=== PATIENT | female | born 1960 | race Caucasian/White ===

== ENCOUNTER 2019-01-27 14:27 | Emergency (ER) | payer BC ==
--- NOTE | 2019-01-27 15:28 | EDM.PDOC ---
ED HPI GENERAL MEDICAL PROBLEM - General Chief Complaint: Eye Problems Stated Complaint: right eye vision change Time Seen by Provider: 01/27/19 14:37 Source of Information: Reports: Patient History Limitations: Reports: No Limitations - History of Present Illness INITIAL COMMENTS - FREE TEXT/NARRATIVE: Patient comes to ER with complaint of black colored dots/swirling appearance of vision at times right eye. Started today. Denies flashes of light. No change in visual acuity. Is nearsighted. Wears contacts. Denies recent injuries. No other health changes. No previous history of similar complaints. Denies eye pain/drainage/swelling. Describes it as looking like there is a bug near bottom of vision at times, sometimes appears like black hairs in visual field. Sometimes appears like black half shape of mooney in line of vision. Normally has good BP, well controlled on meds. Took BP after visual changes started and noticed it was higher than usual. - Related Data Allergies Allergy/AdvReac Type Severity Reaction Status Date / Time Penicillins Allergy Cannot Verified 01/27/19 14:30 Remember Sulfa (Sulfonamide Allergy Cannot Verified 01/27/19 14:30 Antibiotics) Remember Home Meds: Home Meds Metoprolol Tartrate 12.5 mg PO BID 01/27/19 [History] Simvastatin [Zocor] 40 mg PO DAILY 01/27/19 [History] Past Medical History Cardiovascular History: Reports: High Cholesterol, Hypertension Social & Family History - Tobacco Use Smoking Status *Q: Never Smoker Second Hand Smoke Exposure: No - Caffeine Use Caffeine Use: Reports: Coffee, Soda - Recreational Drug Use Recreational Drug Use: No ED ROS GENERAL - Review of Systems Review Of Systems: ROS reveals no pertinent complaints other than HPI. ED EXAM GENERAL W FULL EYE - Physical Exam Exam: See Below Exam Limited By: No Limitations General Appearance: Alert, WD/WN, No Apparent Distress Eye Exam: Bilateral Eye: EOMI, PERRL Visual Acuity (R) 20/: 20 Visual Acuity (L) 20/: 20 With Correction: Yes Eyelids: Bilateral: Normal Appearance Conjunctiva & Sclera: Bilateral: Normal Appearance Cornea Exam: Bilateral: Normal Appearance Extraocular Movements: Bilateral: Intact Pupils: Normal Accommodation Pupillary Size: Bilateral: 5 mm Pupillary Reaction: Bilateral: Brisk Anterior Chamber: Right: Normal Appearance Posterior Chamber: Right: Other (no obvious changes noted, however patient not dilated for exam) Ears: Normal External Exam Nose: No: Nasal Deformity, Nasal Swelling, Nasal Drainage Throat/Mouth: Normal Inspection, Normal Lips, Normal Voice, No Airway Compromise Head: Atraumatic, Normocephalic Neck: Supple, Non-Tender Respiratory/Chest: No Respiratory Distress, Lungs Clear, Normal Breath Sounds Cardiovascular: Regular Rate, Rhythm, No Murmur GI/Abdominal: Soft, Non-Tender (Male) Exam: Deferred (Female) Exam: Deferred Rectal (Males) Exam: Deferred Rectal (Female) Exam: Deferred Neurological: Alert, Oriented, Normal Cognition, Normal Gait, No Motor/Sensory Deficits Psychiatric: Normal Affect, Normal Mood Skin Exam: Warm, Dry, Intact, Normal Color Course - Vital Signs Last Recorded V/S: Last Vital Signs Temp 36.8 C 01/27/19 14:27 Pulse 107 H 01/27/19 14:27 Resp 20 01/27/19 14:27 BP 168/80 H 01/27/19 14:27 Pulse Ox 96 01/27/19 14:27 - Re-Assessments/Exams Free Text/Narrative Re-Assessment/Exam: Call placed to [facility] and spoke to on-call eye provider, . He feels that the changes could reflect a posterior vitreous detachment and wants patient to follow up Tuesday for an indepth eye exam. Patient will call [facility] early Tuesday morning to obtain appointment. Patient agreeable with plan. Suspect BP elevation likely due to anxiety related to visual changes. Patient reassured. To continue to monitor BP for change and follow up with primary provider if it continues to trend higher. Departure - Departure Time of Disposition: 15:36 Disposition: Home, Self-Care 01 Condition: Good Clinical Impression: Visual changes - Discharge Information Instructions: Vitreous Detachment Referrals: PCP,None [Primary Care Provider] - Forms: ED Department Discharge Additional Instructions: Take it easy over the weekend. Avoid lifting and other forms of heavy exertion. Call [facility] in [place] on Tuesday and get an appointment at one of their clinics to see an eye provider to have a thorough eye exam. We spoke to who was correctional case records supervisor over the weekend and he wants you to be checked on Tuesday. Tell them he is concerned that you may have a posterior vitreous detachment which caused your sudden floaters. Take your blood pressure a few times over the next few days and observe trends. Hopefully it is the stress of the vision change/anxiety that is contributing to the elevation. However, if it persists, you will need to follow up with your doctor.
== END 2019-01-27 16:05 | disposition home or self-care (01) ==
LOC: LL.ED 14:27
DX: H57.89 Other specified disorders of eye and adnexa (principal); I10 Essential (primary) hypertension; E78.00 Pure hypercholesterolemia, unspecified; Z88.2 Allergy status to sulfonamides; Z79.899 Other long term (current) drug therapy; Z88.0 Allergy status to penicillin
CPT/HCPCS: 99283

== ENCOUNTER 2020-03-09 15:50 | Emergency (ER) | payer BC ==
[2020-03-09] MEDS ORDERED: Sodium Chloride 0.9% 10 ML Syringe FLUSH PRN (16:04)
[2020-03-09] MEDS ORDERED: Sodium Chloride 0.9% 1,000 ML IV SCH (16:15)
[2020-03-09 16:40] LABS: CHLORIDE,CL 100 mmol/L (98-107); SODIUM,NA 136 mmol/L (136-145)
[2020-03-09] MEDS ORDERED: Ondansetron 4 MG/2 ML SDV IVPUSH ONE (16:40)
--- NOTE | 2020-03-09 16:54 | EDM.PDOC ---
ED HPI GENERAL MEDICAL PROBLEM - General Chief Complaint: General Stated Complaint: nausea, malaise, fever Time Seen by Provider: 03/09/20 16:05 Source of Information: Reports: Patient History Limitations: Reports: No Limitations - History of Present Illness INITIAL COMMENTS - FREE TEXT/NARRATIVE: Pt presents to ER with fever, nausea and malaise Worse today No known Covid exposure No SOB No chest pain Decreased appetite Duration: Day(s):, Getting Worse Location: Reports: Generalized Quality: Reports: Ache Severity: Moderate Associated Symptoms: Reports: Fever/Chills, Malaise, Nausea/Vomiting Abdominal Pain Score (Numeric/FACES): 2 - Related Data Allergies Allergy/AdvReac Type Severity Reaction Status Date / Time Penicillins Allergy Cannot Verified 03/09/20 16:02 Remember soybean Allergy Difficulty Verified 03/09/20 16:02 Swallowing Sulfa (Sulfonamide Allergy Cannot Verified 03/09/20 16:02 Antibiotics) Remember Home Meds: Home Meds Metoprolol Tartrate 12.5 mg PO BID 01/27/19 [History] Simvastatin [Zocor] 40 mg PO DAILY 01/27/19 [History] Ascorbic Acid [Vitamin C] 500 mg PO DAILY 03/09/20 [History] Aspirin [Halfprin] 81 mg PO TUTH 03/09/20 [History] Calcium Carbonate [Calcium] 500 mg PO DAILY 03/09/20 [History] Elderberry Fruit and Flower [Black Elderberry 575 mg Cap] 1 each PO DAILY 03/09/20 [History] Fish Oil/[place]-3 Fatty Acids [Fish Oil 1,000 MG] 1 each PO DAILY 03/09/20 [History] Magnesium 200 mg PO DAILY 03/09/20 [History] Non-Formulary Medication [NF Drug] 1 each PO ASDIRECTED 03/09/20 [History] Non-Formulary Medication [NF Drug] 1 each PO DAILY 03/09/20 [History] Zinc 50 mg PO DAILY 03/09/20 [History] Past Medical History HEENT History: Reports: Impaired Vision Cardiovascular History: Reports: High Cholesterol, Hypertension - Past Surgical History GI Surgical History: Reports: Appendectomy Female Surgical History: Reports: Hysterectomy, Salpingo-Oophorectomy, Other (See Below) Other Female Surgeries/Procedures: cervix removal Social & Family History - Tobacco Use Tobacco Use Status *Q: Never Tobacco User - Caffeine Use Caffeine Use: Reports: Coffee, Soda, Tea ED ROS GENERAL - Review of Systems Review Of Systems: See Below Constitutional: Reports: Fever, Malaise, Weakness, Fatigue, Decreased Appetite Respiratory: Reports: No Symptoms Cardiovascular: Reports: No Symptoms GI/Abdominal: Reports: Nausea Musculoskeletal: Reports: No Symptoms Skin: Reports: No Symptoms Neurological: Reports: No Symptoms Psychiatric: Reports: No Symptoms ED EXAM, GENERAL - Physical Exam Exam: See Below Exam Limited By: No Limitations General Appearance: Alert, WD/WN, Moderate Distress Nose: Normal Inspection Throat/Mouth: Normal Oropharynx Neck: Supple Respiratory/Chest: Decreased Breath Sounds Cardiovascular: Regular Rate, Rhythm GI/Abdominal: Soft, Non-Tender Extremities: Normal Inspection Neurological: Alert, Oriented Psychiatric: Normal Affect, Normal Mood Skin Exam: Warm, Dry Course - Vital Signs Last Recorded V/S: Last Vital Signs Temp 98.9 F 03/09/20 16:05 Pulse 86 03/09/20 16:05 Resp 16 03/09/20 16:05 BP 145/84 H 03/09/20 16:05 Pulse Ox 99 03/09/20 16:05 - Orders/Labs/Meds Orders: Active Orders 24 hr Category Date Time Status CORONAVIRUS COVID-19 VALENTINO [MOLEC] Urgent Lab 03/09/20 16:03 Ordered Sodium Chloride 0.9% [Normal Saline] 1,000 ml Med 03/09/20 16:15 Active IV ASDIRECTED Sodium Chloride 0.9% [Saline Flush] Med 03/09/20 16:04 Active 10 ml FLUSH ASDIRECTED PRN Isolation [COMM] Routine Oth 03/09/20 16:03 Active Saline Lock Insert [OM.PC] Routine Oth 03/09/20 16:04 Ordered Medication Orders Sodium Chloride (Normal Saline) 1,000 mls @ 999 mls/hr IV ASDIRECTED ALIDA Last Admin: 03/09/20 16:15 Dose: 999 mls/hr Documented by: CASS Sodium Chloride (Saline Flush) 10 ml FLUSH ASDIRECTED PRN PRN Reason: Keep Vein Open Labs: Laboratory Tests 03/09/20 03/09/20 Range/Units 16:15 16:15 WBC 4.4 (4.0-10.2) K/uL RBC 4.80 (3.77-5.09) M/uL Hgb 14.3 (11.7-15.5) g/dL Hct 41.1 (34.0-46.0) % MCV 85.6 (84.0-98.0) fL MCH 29.8 (28.2-33.3) pg MCHC 34.8 (31.7-36.0) g/dL RDW 13.1 (11.2-14.1) % Plt Count 115 L (150-350) K/uL Neut % (Auto) 72.4 (45.0-80.0) % Lymph % (Auto) 22.0 (10.0-50.0) % [place] % (Auto) 5.2 (2.0-14.0) % Eos % (Auto) 0.2 (0.0-5.0) % Baso % (Auto) 0.2 (0.0-2.0) % Neut # (Auto) 3.19 (1.40-7.00) K/uL Lymph # (Auto) 0.97 (0.50-3.50) K/uL [place] # (Auto) 0.23 (0.00-1.00) K/uL Eos # (Auto) 0.01 (0.00-0.50) K/uL Baso # (Auto) 0.01 (0.00-0.20) K/uL Sodium 136 (136-145) mmol/L Potassium 3.3 L (3.5-5.1) mmol/L Chloride 100 (98-107) mmol/L Carbon Dioxide 25.8 (21.0-32.0) mmol/L BUN 11 (7-18) mg/dL Creatinine 0.62 (0.51-1.17) mg/dL Est Cr Clr Drug Dosing 90.08 mL/min Estimated GFR (MDRD) > 60 mL/min Glucose 110 H (74-106) mg/dL Calcium 8.5 (8.5-10.1) mg/dL Meds: Medications Generic Name Dose Route Start Last Admin Trade Name Freq PRN Reason Stop Dose Admin Sodium Chloride 1,000 mls @ 999 mls/hr 03/09/20 16:15 03/09/20 16:15 Normal Saline IV 999 mls/hr ASDIRECTED ALIDA Administration Sodium Chloride 10 ml 03/09/20 16:04 Saline Flush FLUSH ASDIRECTED PRN Keep Vein Open Discontinued Medications Generic Name Dose Route Start Last Admin Trade Name Veronique PRN Reason Stop Dose Admin Ondansetron HCl 8 mg 03/09/20 16:40 Zofran IVPUSH 03/09/20 16:41 ONETIME ONE - Re-Assessments/Exams Free Text/Narrative Re-Assessment/Exam: 03/09/20 16:51 Pt given IVF and IV Zofran in ER See lab Covid test pending Departure - Departure Time of Disposition: 17:30 Disposition: Home, Self-Care 01 Clinical Impression: Malaise and fatigue - Discharge Information *PRESCRIPTION DRUG MONITORING PROGRAM REVIEWED*: Not Applicable *COPY OF PRESCRIPTION DRUG MONITORING REPORT IN PATIENT JOSEPH: Not Applicable Instructions: Fatigue Referrals: Jennifer Sanchez NP [Primary Care Provider] - Additional Instructions: Tylenol or Motrin as needed Follow up in clinic Rx Zofran ODT every 8 hours as needed Encourage fluids Sepsis Event Note (ED) - Evaluation Sepsis Screening Result: No Definite Risk - Focused Exam Vital Signs: Vital Signs Temp Pulse Resp BP Pulse Ox 03/09/20 16:05 98.9 F 86 16 145/84 H 99 - My Orders Last 24 Hours: My Active Orders 03/09/20 16:03 CORONAVIRUS COVID-19 VALENTINO [MOLEC] Urgent Isolation [COMM] Routine 03/09/20 16:04 Sodium Chloride 0.9% [Saline Flush] 10 ml FLUSH ASDIRECTED PRN Saline Lock Insert [OM.PC] Routine 03/09/20 16:15 Sodium Chloride 0.9% [Normal Saline] 1,000 ml IV ASDIRECTED - Assessment/Plan Last 24 Hours: My Active Orders 03/09/20 16:03 CORONAVIRUS COVID-19 VALENTINO [MOLEC] Urgent Isolation [COMM] Routine 03/09/20 16:04 Sodium Chloride 0.9% [Saline Flush] 10 ml FLUSH ASDIRECTED PRN Saline Lock Insert [OM.PC] Routine 03/09/20 16:15 Sodium Chloride 0.9% [Normal Saline] 1,000 ml IV ASDIRECTED
== END 2020-03-09 17:30 | disposition home or self-care (01) ==
LOC: LL.ED 15:50
DX: U07.1 COVID-19 (principal); I10 Essential (primary) hypertension; E78.00 Pure hypercholesterolemia, unspecified; Z79.82 Long term (current) use of aspirin; Z79.899 Other long term (current) drug therapy; Z88.0 Allergy status to penicillin; Z91.018 Allergy to other foods; Z88.2 Allergy status to sulfonamides
CPT/HCPCS: 36415; 80048; 85025; 87804; 96374; 99283-25; J2405; J7030; U0002

== ENCOUNTER 2023-05-15 12:44 | Emergency (ER) | payer BC ==
[2023-05-15 12:55] LABS: APPEARANCE,URINE CLEAR; BILIRUBIN,URINE NEGATIVE (NEGATIVE); COLOR,URINE LIGHT YELLOW; GLUCOSE,URINE NEGATIVE (NEGATIVE); KETONES,URINE NEGATIVE (NEGATIVE); LEUKOCYTE ESTERASE,URINE MODERATE (NEGATIVE); NITRITE,URINE NEGATIVE (NEGATIVE); OCCULT BLOOD,URINE MODERATE (NEGATIVE); PROTEIN,URINE NEGATIVE (NEGATIVE); UROBILINOGEN,URINE 0.2 E.U./dL (0.2-1.0)
[2023-05-15 13:03] LABS: BACTERIA,URINE MODERATE /HPF (NONE TO FEW); EPITHELIAL CELLS,URINE FEW /LPF; RBC,URINE 0-5 /HPF; WBC,URINE >100 /HPF
[2023-05-15] MEDS ORDERED: Take Home: Nitrofurantoin Monohydrate/Macrocrystalline 100 MG, 6 Cap Pack PO ONE (13:16)
== END 2023-05-15 13:30 | disposition home or self-care (01) ==
LOC: LL.ED 12:44
DX: N39.0 Urinary tract infection, site not specified (principal); I10 Essential (primary) hypertension; E78.00 Pure hypercholesterolemia, unspecified; Z88.2 Allergy status to sulfonamides; Z88.0 Allergy status to penicillin; Z91.018 Allergy to other foods; Z79.82 Long term (current) use of aspirin; Z90.49 Acquired absence of other specified parts of digestive tract; Z90.710 Acquired absence of both cervix and uterus
CPT/HCPCS: 81001; 87086; 99283; 99284; A9270